=== PATIENT | male | born 1950 | race African-American/Black ===

== ENCOUNTER 2017-03-15 07:46 | Emergency (ER) | payer OTHER ==
[~2017-03-15] VITALS: Ht 165.1 cm; Wt 65.8 kg
--- NOTE | ~2017-03-15 | EKG ---
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 : 1950 Requested By: Kristian Mcgowan Order Number: [id number] MD: Alpesh Garza Measurements Intervals Mcandrews Rate: 95 P: 34 UT: 145 QRS: -14 QRSD: 83 T: 7 QT: 343 QTc: 431 Interpretive Statements Sinus rhythm Atrial premature complex Nonspecific T wave abnormality No previous ECG available for comparison Electronically Signed On 03-15-2017 8:53:20 CDT by Alpesh Garza [email or web address] <ELECTRONICALLY SIGNED> By: Alpesh Garza MD, [facility] 03/15/17 0853 0750 0750 Alpesh Garza MD, FACC /EPI
[2017-03-15] MEDS ORDERED: NITROGLYCERIN0.4 MG SUBLING (07:55)
[2017-03-15] MEDS ORDERED: TYLENOL325 MG PO (07:55)
[2017-03-15] MEDS ORDERED: KLOR-CON 1010 MEQ PO (07:55)
[2017-03-15] MEDS ORDERED: HYDRALAZINE 2525 MG PO (07:55)
[2017-03-15] MEDS ORDERED: GABAPENTIN 100100 MG PO (07:56)
[2017-03-15] MEDS ORDERED: LEXAPRO 10 MG T10 M2 PO (07:56)
[2017-03-15] MEDS ORDERED: TUMS PO (07:56)
[2017-03-15] MEDS ORDERED: HYTRIN 5 M5 MG/1 CAP PO (07:56)
[2017-03-15] MEDS ORDERED: COREG25 MG PO (07:57)
[2017-03-15] MEDS ORDERED: ALLOPURINOL 10100 M1 PO (07:57)
[2017-03-15] MEDS ORDERED: PROTONIX40 M1 PO (07:57)
[2017-03-15] MEDS ORDERED: PRINIVIL20 MG PO (07:57)
[2017-03-15] MEDS ORDERED: ASPIR 8181 MG PO (07:58)
[2017-03-15] MEDS ORDERED: PENTOXIFYLLINE400 MG PO (07:58)
[2017-03-15 08:53] LABS: ABSOLUTE NEUTROPHILS 2.9 thou/uL (1.4-8.2); BASOPHILS 1.1 % (0.0-2.0); EOSINOPHILS 15.2 % (0.0-3.0); HEMATOCRIT 25.5 % (42.0-52.0); HEMOGLOBIN 8.4 gm/dL (14.0-18.0); LYMPHOCYTES 27.6 % (24.0-44.0); MCH 24.8 pg (26.0-34.0); MCHC 33.1 g/dL (28.0-37.0); MCV 75.1 fL (80.0-100.0); MONOCYTES 7.1 % (1.0-8.0); PLATELET COUNT 101 thou/uL (150-400); RDW 21.2 % (10.5-14.5); WBC 5.9 thou/uL (4.0-11.0)
[2017-03-15 08:57] LABS: CALCIUM 8.4 mg/dL (8.5-10.1); CREATININE 5.3 mg/dL (0.7-1.3)
[2017-03-15 08:59] LABS: POTASSIUM 6.4 mmol/L (3.5-5.1)
[2017-03-15 09:15] LABS: MANUAL DIFF NO
[2017-03-15 11:51] VITALS: BP 176/84
== END 2017-03-15 11:53 | disposition home or self-care (01) ==
LOC: ER 07:46
PROVIDERS: Emergency Medicine
DX: R06.00 Dyspnea, unspecified (principal); E87.5 Hyperkalemia; F10.99 Alcohol use, unspecified with unspecified alcohol-induced disorder; Z87.891 Personal history of nicotine dependence; Z79.82 Long term (current) use of aspirin

== ENCOUNTER 2017-04-30 14:34 | Inpatient (IN) | payer OTHER ==
[~2017-04-30] VITALS: Ht 165.1 cm; Wt 58.4 kg
--- NOTE | ~2017-04-30 | H ---
[facility] [place] [address] HISTORY AND PHYSICAL Name: SEBLE WATT Room #: 512-P [facility] IN M.R.#: [id number] Admission: 04/30/17 Attend Phys: Hussein Medina MD Discharge: Date of : 54 Report #: [id number] THIS REPORT FOR: //name// CC: Hussein Medina [facility] unknown DATE OF SERVICE: 05/01/2017 ATTENDING PHYSICIAN: Dr. Hussein Medina. CONSULTING PHYSICIAN: Dr. Alie Guzman. CHIEF COMPLAINT: Weakness and renal failure. HISTORY OF PRESENT ILLNESS: The patient is a 66-year-old gentleman with known history of kidney transplant and renal failure. The patient is currently on hemodialysis and was having increased weakness. The patient has been admitted to inpatient rehabilitation unit. He does complain of having some nausea and some lightheadedness. He denied having any chest pain. PAST MEDICAL HISTORY: 1. Significant for history of kidney transplant. 2. End-stage renal disease, on hemodialysis. 3. Diabetes mellitus. 4. Hypertension. 5. Anemia. PAST SURGICAL HISTORY: Kidney transplant. ALLERGIES: He is not known to be allergic to any medication. MEDICATIONS: Medications used currently was hydralazine and nitroglycerin p.r.n., Tylenol p.r.n., calcium carbonate, Lexapro, gabapentin, terazosin, allopurinol, Coreg, lisinopril, pantoprazole, pentoxifylline and aspirin. SOCIAL HISTORY: Past history of cigarettes and uses of alcohol. REVIEW OF SYSTEMS: He did complain of dizziness and nausea. Denied any chest pain or breathing difficulty. No abdominal pain or any urinary symptoms. The patient was currently on dialysis. PHYSICAL EXAMINATION: GENERAL: Elderly gentleman who was sitting in a wheelchair. He did not appear to be in any acute distress. He was awake, alert, oriented to place and person. VITAL SIGNS: He was afebrile, pulse was 90 per minute and regular, respiratory rate of 16, blood pressure was 166/100. [address] [address] HISTORY AND PHYSICAL Name: SEBLE WATT Room #: 512-P [facility] IN M.R.#: [id number] Admission: 04/30/17 Attend Phys: Hussein Medina MD Discharge: Date of : 54 Report #: [id number] HEENT: Skull was atraumatic. There was mild pallor, no icterus. Mucosa was moist. NECK: Supple. LUNGS: Clear to auscultation bilaterally with no wheezing or crackles. HEART: First and second normal. There was no pericardial rub heard. ABDOMEN: Soft, nontender, bowel sounds normally heard. EXTREMITIES: Did not reveal any edema and the patient had AV fistula. ASSESSMENT: 1. End-stage renal disease, on hemodialysis. 2. Nausea. 3. Diabetes mellitus. 4. Hypertension. PLAN: To continue the patient on his current medications and start him on Zofran 4 mg q. 6 p.r.n. for nausea. Continue with his hemodialysis and we will follow along with. I would like to thank Dr. Medina for letting me part of the team taking care of the patient. <ELECTRONICALLY SIGNED> By: Alie Guzman MD 05/13/17 1412 0854 1004 Alie Guzman MD /nt
--- NOTE | ~2017-04-30 | HC ---
[facility] [place] [address] CONSULTATION Name: SEBLE WATT Room #: 512-P [facility] IN M.R.#: [id number] Admission: 04/30/17 Attend Phys: Hussein Medina MD Discharge: 05/14/17 Date of : 54 Report #: [id number] THIS REPORT FOR: //name// CC: Hussein Medina [facility] unknown DATE OF SERVICE: 05/02/2017 NEUROBEHAVIORAL STATUS EXAM ATTENDING PHYSICIAN: Hussein Medina MD THERAPY ASSISTANT: Deep Barraza, PhD CLINICAL PRESENTATION: The patient is a 66-year-old -[place] male admitted to the Rehab Unit at [facility] to assist with activities of daily living and self-care and mental status secondary to medical complexity and general debility. The patient is an end-stage renal disease with a prior failure kidney transplant. The patient is reported to have been confused and disoriented to the extent of discontinuing dialysis and not taking medicine properly. He was then [facility] [place] [facility] with volume overload and hyperkalemia. His condition began to resolve, but further treatment was necessary and subsequent hospitalization was indicated. He was transferred [place] the [place] [facility] and from [facility] to the rehabilitation program at [facility]. His diagnoses include medical complexity with generalized debilitation, recent Staphylococcus epidermis bacteremia, end-stage renal disease, diabetes mellitus, diabetic peripheral neuropathy, gastrointestinal bleeding, hepatitis C, and hypertension. A complete description of his medical condition, history and medications can be found in his medical record. Neuropsychological consultation was requested to provide assistance in the assessment of cognitive and emotional status and to provide recommendations and services. Prior to this most recent medical event, he was living independently with his in their home. The patient had a deterioration in functioning approximately 6 weeks' duration. Concern about dementia was expressed by his . He discontinued driving about 4 months ago. The patient is a high school graduate. He is a . 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 This is his second marriage. He has 4 children. TECHNIQUES UTILIZED: Clinical interview, review of medical records, staff consultation and behavioral observation, mini mental status exam 2 standard version, and clock drawing and interview with his . EXAMINATION FINDINGS: The patient was very drowsy and difficult to arouse. [facility] [address] [place] [address] CONSULTATION Name: SEBLE WATT Room #: 512-P [facility] IN M.R.#: [id number] Admission: 04/30/17 Attend Phys: Hussein Medina MD Discharge: 05/14/17 Date of : 54 Report #: [id number] Once responsive his orientation to place was poor. He indicated that he was in [place]. The patient was stationed in [place] many years ago. He was unable to recall the reason for his hospitalization or most recent residence. The patient stated that he was living alone. However, he was living with his . His family is supportive and has been taking care of providing an additional assistance in maintaining his care even though he has been increasingly noncompliant. His recently had a double mastectomy for breast cancer last week. She is concerned about her ability to care for him unless he had obtained to greater level of orientation and independence. Previous treatment for depression was reported. The patient is an unreliable historian of concerns and symptoms. He does not report difficulty with sleep or energy level. Appetite is described as inconsistent. However, the patient is unreliable in regard to his self disclosure. His performance on the MMSE 2 brief version was extremely low with a raw score of 10 of 16. He was 3/3 for initial registration, 1/5 for orientation to time and 3/[address]. He was 2/3 for immediate recall of 3 items after a brief time delay and distraction. The total raw score on the MMSE 2 brief version was 9 of 16. His performance on the MMSE 2 standard version was extremely low with a raw score 16 of 30. He was 0/5 for serial 7's, 2/2 for naming, 1/1 for repetition. He was 3/3 for auditory comprehension. He could read and follow single command. The patient was unable to copy a simple geometric design. He could not write a sentence. The patient was unable to place the numbers into a clock. He was very drowsy and required frequent encouragement to maintain orientation. At this time, his performance suggests intermittent delirium. An underlying neurocognitive disorder is likely. Impairment is noted with attention/concentration, immediate memory, executive functioning and visual spatial organization. DIAGNOSTIC IMPRESSION: Delirium, hypoactive, acute. Major neurocognitive disorder (dementia), likely due to medical etiology with vascular features, with decreased insight -- extent to be determined, RECOMMENDATIONS: The patient will require assistance in the management of medication, finances and nutrition. Encouragement to maintain alertness in order to engage in compensatory strategies for deficits in cognitive functioning. The use of a memory and orientation book would be helpful when [facility] [address] [place] [address] CONSULTATION Name: SEBLE WATT JR Room #: 512-P [facility] IN M.R.#: [id number] Admission: 04/30/17 Attend Phys: Hussein Medina MD Discharge: 05/14/17 Date of : 54 Report #: [id number] his level of environmental engagement is higher. Continued reorientation to place, time, and purpose of treatment will also be helpful. A followup neuropsychological evaluation to clarify severity of neurocognitive status and type of dementia is also indicated. Thank you very much for allowing me to provide the consultation on this patient. <ELECTRONICALLY SIGNED> By: Deep Barraza, PhD 05/15/17 1243 [id number] Deep Barraza, PhD /nt
--- NOTE | ~2017-04-30 | PLAN ---
[facility] [place] [address] REHAB UNIT PLAN OF CARE Name: SEBLE WATT JR Room #: 512-P AD[facility] IN M.R.#: [id number] Admission: 04/30/17 Attend Phys: Hussein Medina MD Discharge: Date of : 54 Report #: [id number] THIS REPORT FOR: //name// CC: Hussein MARTINES unknown DATE OF SERVICE: 05/03/2017 HISTORY: The patient is seen back today in followup. He is in no distress. Last recorded temperature is 37.4, pulse 80, respirations 16, blood pressure 151/85. No focal calf swelling. He has been voiding per the urinal. Continues on dialysis. Transfers are mod assist. Gait has been 20 feet mod assist with a front-wheeled walker. In occupational therapy, he is max assist for lower body dressing. ASSESSMENT: 1. Medical complexity with generalized debilitation. 2. Recent Staphylococcus epidermidis bacteremia. 3. End-stage renal disease with failed kidney transplant. 4. Diabetes mellitus. 5. Diabetic peripheral neuropathy. 6. Gastrointestinal bleeding. 7. Hepatitis C. 8. Hypertension. PLAN: The overall plan of care is based on the preadmission screen, post-admission physician evaluation and information garnered from therapy assessments. 1. Estimated length of stay is probably 2 weeks pending progress. 2. Medical prognosis is reasonably good. 3. Anticipated interventions includes the interdisciplinary acute inpatient rehabilitation program with PT, OT, rehab nursing assisting regarding medication management, skin care prophylaxis, bowel and bladder issues, and nursing education. The rehab consultants will be involved. Goals to maximize the patient's functional independence, so he can hopefully return back to his home setting. 4. Discharge destination would be back home where he lives with his family. 5. Expected therapy by discipline includes PT, OT 1 and 1-1/2 hours per day each five days a week throughout the duration of the acute inpatient rehabilitation stay. By: [id number] Hussein Medina MD /PMT
--- NOTE | ~2017-04-30 | H ---
[facility] [place] [address] HISTORY AND PHYSICAL Name: SEBLE WATT Room #: 512-P [facility] IN .R.#: [id number] Admission: 04/30/17 Attend Phys: Hussein Medina MD Discharge: 05/14/17 Date of : 54 Report #: [id number] THIS REPORT FOR: //name// CC: Hussein Medina [facility] unknown DATE OF SERVICE: 04/30/2017 HISTORY OF PRESENT ILLNESS: The patient is a 66-year-old -Wallisian male with a history of end-stage renal disease with prior failed kidney transplant, who was originally admitted to the [facility] with volume overload and hyperkalemia thought to be related to noncompliance. He was noted to have multiple comorbid conditions including hypertension, atrial fibrillation, diabetes mellitus and hepatitis C. He had blood cultures positive for Staphylococcus epidermidis. Infectious Disease was involved and it was noted of one of the four blood cultures was positive. Echocardiogram was negative. He is to continue with the 14-day course of vancomycin. He initially appeared to be encephalopathic with decreased cognition and there is a question of potentially some baseline dementia. The patient was transferred to [facility] for further medical management and care. He was involved in therapies and made gradual progress. He continued on the dialysis. Infectious Disease is involved regarding the IV vancomycin. He has shown gradual progress as far as basic functional mobility and now was felt to be ready to be admitted to the acute inpatient rehabilitation cho for intensive interdisciplinary rehabilitation therapies. PAST MEDICAL HISTORY: As noted above. End-stage renal disease, diabetes mellitus, hypertension, hepatitis C. He has had prior history of gastrointestinal bleeding. He has had prior kidney transplant with failure. MEDICATIONS: Each of the medications was individually reconciled upon admission and includes many vitamins, herbals, supplementation, etc. ALLERGIES: None known. FAMILY HISTORY: Noncontributory. HABITS: Nonsmoker, minimal alcohol intake. SOCIAL HISTORY: Lives with his in an apartment with two grandchildren, 1 and 2 years old. No steps. Premorbidly utilized a walker. Apparently, he has had transplant x 2 with subsequent failure and is on dialysis. There is a son and daughter in [place] and 2 daughters on the [facility]. His is retired. REVIEW OF SYSTEMS: He did not offer any current complaints of chest pain, [address] [address] HISTORY AND PHYSICAL Name: ALYSASEBLE Charisse Room #: 512-P [facility] IN [facility].#: [id number] Admission: 04/30/17 Attend Phys: Hussein Medina MD Discharge: 05/14/17 Date of : 54 Report #: [id number] shortness of breath, abdominal discomfort. He has numbness of his distal lower extremities consistent with his peripheral neuropathy. Complains of general overall weakness. Did not offer any complaints of any bowel or bladder changes. PHYSICAL EXAMINATION: GENERAL: He is a pleasant 66-year-old -Wallisian male in no obvious distress. VITAL SIGNS: Last recorded temperature 37.6, pulse 83, respirations 18, blood pressure 146/77. NEUROLOGIC: He is alert, appears appropriate. There is some cognitive slowing with his cognitive processing. He is able to follow basic commands without difficulty. Facies are symmetric. He is of slender build. CHEST: Sounded clear to auscultation. CARDIOVASCULAR: Sounded regular rate and rhythm. ABDOMEN: Bowel sounds positive, nontender. GENITOURINARY AND RECTAL: Deferred. EXTREMITIES: He has had bilateral shoulder rotator cuff surgeries. He has decreased abduction especially of the left shoulder to about 60 degrees, the right is closer to 90 degrees abduction. Strength of elbow, wrist and hand is more of a grade 4-. In his lower extremities, he has had a prior left knee incision from a prior left total knee replacement. There is no focal calf swelling. He has decreased sensation of his distal lower extremity consistent with his peripheral neuropathy. Strength is probably grade 3+/5. DTRs are decreased. Functionally, he has been needing assistance as far as basic transfers and his evaluation is underway with therapy. ASSESSMENT: A 66-year-old -Wallisian male with the following problem list: 1. Medical complexity with generalized debilitation. 2. Recent Staphylococcus epidermidis bacteremia. 3. End-stage renal disease with failed kidney transplant. Continues on dialysis. 4. Diabetes mellitus. 5. Diabetic peripheral neuropathy. 6. Gastrointestinal bleeding. 7. Hepatitis C. 8. Hypertension. PLAN: The patient is admitted for acute in-hospital inpatient rehabilitation. From a post admission physician evaluation perspective, there are no relevant changes since the preadmission screening. Please see the above review of prior and current medical and functional conditions and comorbidities. Please see the patient's previous and current functional status. As far as risk of complications, he has multiple medical comorbidities as noted above. Initial plan of care involves the interdisciplinary acute inpatient rehabilitation team with the goal of maximizing the patient's functional independence, so that he [facility] [address] [place] [address] HISTORY AND PHYSICAL Name: SEBLE WATT JR Room #: 512-P [facility] IN M.R.#: [id number] Admission: 04/30/17 Attend Phys: Hussein Medina MD Discharge: 05/14/17 Date of : 54 Report #: [id number] can hopefully return back to his prior living situation. Measurable functional goals would be for him to hopefully be up and able to ambulate with the walker again and do his basic ADLs, so that he can return back to his home setting. Prognosis is reasonably good. Estimated length of stay is probably at least 2 weeks. Potential barriers would include his multiple medical comorbidities and decreased functional status. By: 0821 1029 Hussein Medina MD /THEO
--- NOTE | ~2017-04-30 | HC ---
[facility] [place] [address] CONSULTATION Name: SEBLE WATT Room #: 512-P [facility] IN .R.#: [id number] Admission: 04/30/17 Attend Phys: Hussein Medina MD Discharge: Date of : 54 Report #: [id number] THIS REPORT FOR: //name// CC: Hussein MARTINES unknown DATE OF SERVICE: 05/01/2017 ATTENDING PHYSICIAN: Dr. Medina. REASON FOR CONSULTATION: End-stage renal disease. HISTORY OF PRESENT ILLNESS: The patient is well known to our service, has had end-stage renal disease for roughly 30 years. He had been on peritoneal dialysis, had two renal transplants most recently one of which failed 1-2 years ago and back on hemodialysis intermittently. Most recently he had urinary tract infection, questionable Staph ____ [facility] and now here for acute rehabilitation. PAST MEDICAL HISTORY: Longstanding difficult hypertension; longstanding diabetes, currently not treated with insulin. He has had multiple orthopedic surgeries including bilateral rotator cuff surgeries and two total left knee replacements. CURRENT MEDICATIONS: Include allopurinol 100 mg daily, calcium carbonate, carvedilol 25 mg b.i.d., citalopram 10 mg daily, Procrit, doxazosin 2 mg daily, Neurontin 300 mg at bedtime, lisinopril 20 mg daily, Protonix 40 mg daily, IV iron and Nephro-Jose. FAMILY HISTORY: Positive for diabetes. SOCIAL HISTORY: Remote smoking history. He has had some difficulty with alcoholism even recently. REVIEW OF SYSTEMS: GENERAL: He is overall fairly weak. EYES: Vision okay except he gets double vision. ENT: Hearing okay, swallows okay. No mouth ulcers. ENDOCRINE: Positive for the diabetes. RESPIRATORY: Denies current shortness of breath, hemoptysis, or pleuritic pain. CARDIAC: He has had no cardiac history. There have been no palpitations, heart failure, angina or other interventions. GASTROINTESTINAL: Appetite fair. GENITOURINARY: Continues to make some urine, not a lot. No dysuria or hematuria. NEUROLOGIC: He has got quite a bit of neuropathy symptoms in his legs. He has [facility] [address] [place] [address] CONSULTATION Name: SEBLE WATT Charisse Room #: 512-P [facility] IN M.R.#: [id number] Admission: 04/30/17 Attend Phys: Hussein Medina MD Discharge: Date of : 54 Report #: [id number] been weak. He has been unable to walk for sometime. MUSCULOSKELETAL: No active arthritis. PSYCHIATRIC: Again have the problem with alcoholism. PHYSICAL EXAMINATION: VITAL SIGNS: The patient is looking older than his stated age, weak and debilitated. SKIN: Unremarkable. SKELETAL: Nonobese. HEENT: Extraocular movements are full. Vision grossly intact. Hearing grossly intact. Mucous membranes moist. Tongue, buccal mucosa benign. NECK: Supple, no carotid bruits, no JVD, no lymphadenopathy. CHEST: Clear to auscultation. HEART: Regular. ABDOMEN: Soft and nontender. EXTREMITIES: Show no edema. NEUROLOGIC: Shows particularly weakness in the legs. LABORATORY DATA: Hemoglobin 8.5, potassium 3.9, creatinine 3.6. ASSESSMENT AND PLAN: 1. End-stage renal disease, most recently failed second renal transplant, on dialysis, relatively stable. Left arm fistula functioning well. 2. Hypertension, can at times be difficult on multiple medications, will be evaluated. 3. History of diabetes mellitus, off treatment for some time. Sugars okay. 4. Generalized debility with inability to walk, here for rehabilitation. 5. Status post multiple orthopedic surgeries including rotator cuff and left total knee. 6. History of alcohol abuse. 7. Failed renal transplant x 2 now off immunosuppressives. 8. Anemia on IV iron and Procrit. 9. Metabolic bone disease. We will check his phosphorus and decide on a binder. <ELECTRONICALLY SIGNED> By: Primitivo Betancourt MD 05/04/17 1144 1026 0035 Primitivo Betancourt MD /nt
[~2017-04-30 14:34] MED LIST: ALLOPURINOL 10100 M1 PO; ASPIR 8181 MG PO; COREG25 MG PO; GABAPENTIN 100100 MG PO; HYDRALAZINE 2525 MG PO; HYTRIN 5 M5 MG/1 CAP PO; KLOR-CON 1010 MEQ PO; LEXAPRO 10 MG T10 M2 PO; NITROGLYCERIN0.4 MG SUBLING; PENTOXIFYLLINE400 MG PO; PRINIVIL20 MG PO; PROTONIX40 M1 PO; TUMS PO; TYLENOL325 MG PO
[2017-04-30 18:00] VITALS: BP 165/98
[2017-04-30 19:50] VITALS: BP 156/105
[2017-05-01 05:59] LABS: HEMATOCRIT 25.7 % (42.0-52.0); HEMOGLOBIN 8.5 gm/dL (14.0-18.0); MCH 26.3 pg (26.0-34.0); MCHC 33.3 g/dL (28.0-37.0); MCV 79.2 fL (80.0-100.0); RBC 3.24 mil/uL (4.50-6.00); RDW 18.4 % (10.5-14.5); WBC 4.5 thou/uL (4.0-11.0)
[2017-05-01 06:16] LABS: CALCIUM 8.2 mg/dL (8.5-10.1); CREATININE 3.6 mg/dL (0.7-1.3); POTASSIUM 3.9 mmol/L (3.5-5.1)
[2017-05-01 19:41] VITALS: BP 127/66
[2017-05-02 06:29] LABS: CALCIUM 8.3 mg/dL (8.5-10.1); PHOSPHORUS 3.1 mg/dL (2.5-4.9); POTASSIUM 4.6 mmol/L (3.5-5.1)
[2017-05-02 06:30] LABS: CREATININE 5.2 mg/dL (0.7-1.3)
[2017-05-02 07:49] VITALS: BP 134/65
[2017-05-02 19:37] VITALS: BP 151/62
[2017-05-03 08:25] VITALS: BP 151/85
[2017-05-03 16:00] VITALS: BP 133/77
[2017-05-03 19:41] VITALS: BP 148/80
[2017-05-04 10:00] VITALS: BP 146/71
[2017-05-04 20:15] VITALS: BP 147/92
[2017-05-05 09:05] VITALS: BP 142/51
[2017-05-05 20:40] VITALS: BP 139/69
[2017-05-06 09:44] VITALS: BP 123/66
[2017-05-06 17:44] VITALS: BP 132/63
[2017-05-06 20:00] VITALS: BP 140/72
[2017-05-07 20:00] VITALS: BP 129/60
[2017-05-07 21:50] VITALS: BP 129/60
[2017-05-08 08:24] VITALS: BP 139/71
[2017-05-08 20:41] VITALS: BP 118/59
[2017-05-09 08:00] VITALS: BP 131/68
[2017-05-09 19:28] VITALS: BP 148/88
[2017-05-10 08:00] VITALS: BP 134/60
[2017-05-10 19:44] VITALS: BP 144/74
[2017-05-11 08:00] VITALS: BP 150/89
[2017-05-11 20:33] VITALS: BP 151/84
[2017-05-12 07:27] VITALS: BP 141/81
[2017-05-12 20:10] VITALS: BP 135/89
[2017-05-13 20:02] VITALS: BP 131/72
[2017-05-14 05:50] LABS: ALBUMIN 2.1 g/dL (3.4-5.0); CREATININE 3.4 mg/dL (0.7-1.3); PHOSPHORUS 2.2 mg/dL (2.5-4.9); POTASSIUM 4.7 mmol/L (3.5-5.1)
[2017-05-14 08:21] VITALS: BP 147/80
[2017-05-14] MEDS ORDERED: CARDURA4 MG PO (08:58)
[2017-05-14] MEDS ORDERED: TRAMADOL 50 MG50 MG PO (08:59)
[2017-05-14] MEDS ORDERED: NEURONTIN 300300 M1 PO (08:59)
[2017-05-14] MEDS ORDERED: MIRALAX17 GM PO (09:00)
[2017-05-14] MEDS ORDERED: NEPHROCAPS SOFT1 CAP PO (09:00)
[2017-05-14] MEDS ORDERED: COLACE 100 MG100 MG PO (09:00)
[2017-05-14 16:46] VITALS: BP 147/80
== END 2017-05-14 15:35 | DRG 947 ==
PROVIDERS: Hospitalist; Internal Medicine Nephrology; Physical Medicine & Rehabilitation
PROC: 5A1D60Z (ICD-10-PCS; principal; 2017-05-11)
DX: R53.81 Other malaise (principal); E43 Unspecified severe protein-calorie malnutrition; I12.0 Hypertensive chronic kidney disease with stage 5 chronic kidney disease or end stage renal disease; K92.2 Gastrointestinal hemorrhage, unspecified; Z94.0 Kidney transplant status; Z68.1 Body mass index [BMI] 19.9 or less, adult; E11.22 Type 2 diabetes mellitus with diabetic chronic kidney disease; F10.21 Alcohol dependence, in remission; R41.0 Disorientation, unspecified; F01.50 Vascular dementia, unspecified severity, without behavioral disturbance, psychotic disturbance, mood disturbance, and anxiety; E11.42 Type 2 diabetes mellitus with diabetic polyneuropathy; B19.20 Unspecified viral hepatitis C without hepatic coma; K21.9 Gastro-esophageal reflux disease without esophagitis; M10.9 Gout, unspecified; G72.9 Myopathy, unspecified; I25.10 Atherosclerotic heart disease of native coronary artery without angina pectoris; D64.9 Anemia, unspecified; Z96.652 Presence of left artificial knee joint; Z83.3 Family history of diabetes mellitus; Z87.891 Personal history of nicotine dependence; Z99.2 Dependence on renal dialysis
CPT/HCPCS: 10112; 32100

== ENCOUNTER 2017-07-27 21:52 | Emergency (ER) | payer OTHER ==
[~2017-07-27] VITALS: Ht 165.1 cm; Wt 61.2 kg
[~2017-07-27 21:52] MED LIST changes: +CARDURA4 MG PO; +COLACE 100 MG100 MG PO; +MIRALAX17 GM PO; +NEPHROCAPS SOFT1 CAP PO; +NEURONTIN 300300 M1 PO; +TRAMADOL 50 MG50 MG PO
[2017-07-27] MEDS ORDERED: NORCO 5-325 TA1 EACH PO (22:01)
[2017-07-27] MEDS ORDERED: ZANTAC 150MG T150 MG PO (22:02)
[2017-07-27 23:23] LABS: HEMATOCRIT 38.9 % (42.0-52.0); HEMOGLOBIN 12.3 gm/dL (14.0-18.0); MCH 24.6 pg (26.0-34.0); MCHC 31.6 g/dL (28.0-37.0); MCV 77.9 fL (80.0-100.0); RBC 4.99 mil/uL (4.50-6.00); RDW 18.9 % (10.5-14.5); WBC 4.7 thou/uL (4.0-11.0)
[2017-07-27 23:30] LABS: CALCIUM 8.2 mg/dL (8.5-10.1); CREATININE 8.2 mg/dL (0.7-1.3); MAGNESIUM 1.9 mg/dL (1.8-2.4); POTASSIUM 4.7 mmol/L (3.5-5.1)
== END 2017-07-27 23:57 | disposition home or self-care (01) ==
LOC: ER 21:52
PROVIDERS: Emergency Medicine
DX: R51 Headache (principal); R53.1 Weakness; E11.22 Type 2 diabetes mellitus with diabetic chronic kidney disease; N18.6 End stage renal disease; K21.9 Gastro-esophageal reflux disease without esophagitis; M19.90 Unspecified osteoarthritis, unspecified site; Z87.891 Personal history of nicotine dependence; W18.39XA Other fall on same level, initial encounter; Y93.89 Activity, other specified; Y92.89 Other specified places as the place of occurrence of the external cause; Y99.8 Other external cause status

== ENCOUNTER 2017-08-11 17:23 | Inpatient (IN) | payer OTHER ==
[~2017-08-11] VITALS: Ht 165.1 cm; Wt 61.5 kg
--- NOTE | ~2017-08-11 | HC ---
[facility] [place] [address] CONSULTATION Name: SEBLE WATT Room #: 353-P [facility] M.R.#: [id number] Admission: 08/12/17 Attend Phys: Robin Oropeza DO Discharge: Date of : 54 Report #: [id number] THIS REPORT FOR: //name// CC: FAM unknown Robin Oropeza DATE OF SERVICE: 08/12/2017 ATTENDING PHYSICIAN: Dr. Carballo. REASON FOR CONSULTATION: End-stage renal disease, missing dialysis. HISTORY OF PRESENT ILLNESS: The patient is well known to our service with end-stage renal disease for roughly 30 years, on and off dialysis, had 2 renal transplants, most recently failed a couple of years ago. He has been back on hemodialysis. He has been very debilitated, has had several bouts of attempted rehabilitation, living at home with his , unable to walk, gets around with wheelchair, had been very depressed. Now, he has had diarrhea for the last couple of weeks. He has missed at least the last 5 dialysis treatments, was brought to the Emergency Room, potassium was 6.2. PAST MEDICAL HISTORY: Longstanding difficult hypertension, longstanding diabetes, multiple orthopedic surgeries, 2 left knee replacements, multiple bilateral rotator cuff surgeries and chronic debilitation. HOME MEDICATIONS: Include allopurinol 100 mg daily, Tums with meals for binder, carvedilol 25 mg b.i.d., citalopram 10 mg daily, Procrit, doxazosin 2 mg daily, Neurontin 300 mg at bedtime, Nephro-Jose, lisinopril 20 mg daily, Protonix 40 mg daily. FAMILY HISTORY: Positive for diabetes. SOCIAL HISTORY: Remote smoking, some difficulty with alcoholism, I believe not very recently. REVIEW OF SYSTEMS: GENERAL: He has been weak and feeling poorly. EYES: Vision reasonably good. ENT: Hearing okay. No mouth sores or ulcers. ENDOCRINE: Positive diabetes. RESPIRATORY: Not short of breath, but mostly at rest. CARDIAC: No history of angina, palpitations. GASTROINTESTINAL: Appetite has been poor. He has had diarrhea, no bloody stool. GENITOURINARY: Making very little urine. NEUROLOGIC: He has got neuropathy in his legs with numbness and weakness. [facility] [address] [place] [address] CONSULTATION Name: SEBLE WATT Room #: 353-P [facility] ..#: [id number] Admission: 08/12/17 Attend Phys: Robin Oropeza DO Discharge: Date of : 54 Report #: [id number] MUSCULOSKELETAL: No active arthritis. PSYCHIATRIC: He has been somewhat depressed. PHYSICAL EXAMINATION: GENERAL: Chronically ill-appearing gentleman. SKIN: Unremarkable. SKELETAL: Thin, cachectic appearing. HEENT: Extraocular movements are full. Vision grossly intact. No scleral icterus. Hearing intact. Mucous membranes are moist. NECK: Supple. CHEST: Shows diminished breath sounds. HEART: Regular with distant. ABDOMEN: Soft and nontender. EXTREMITIES: Show no edema. LABORATORY DATA: Hemoglobin 12, white count 4.9. Sodium is 137, potassium 6.2, chloride 101, bicarbonate 18, creatinine 16.2, BUN 143. ASSESSMENT: 1. End-stage renal disease. He is quite uremic. He has not dialyzed in a couple of weeks. History is poor. He is sluggish and weak, having fair amount of diarrhea apparently at least according to his history. He will get dialysis with a low potassium bath. We will attempt to at least get him straightened out, dialyze him again tomorrow to try to catch up a little on his dialysis. 2. Diarrhea. That will need to be evaluated. 3. Longstanding diabetes mellitus. 4. History of hypertension. 5. Chronic and severe debility. <ELECTRONICALLY SIGNED> By: Primitivo Betancourt MD 08/13/17 1044 0901 1417 Primitivo Betancourt MD /nt
--- NOTE | ~2017-08-11 | EKG ---
[address] [address] ELECTROCARDIOGRAM REPORT Name: SEBLE WATT Room #: 353-P [facility] M.R.#: [id number] Admission: 08/11/17 Attend Phys: Giovanna Carballo Discharge: Date of : 54 Report #: [id number] THIS REPORT FOR: //name// [facility] ED Test Date: 2017-08-11 Test Time: 18:33:40 Pat Name: SEBLE WATT Department: Room: [facility] Gender: M State Manager: : 1950 Requested By: Nelson De Order Number: [id number] MD: Loco Kendall Measurements Intervals [place] Rate: 65 P: 15 [place]: 148 QRS: -17 QRSD: 88 T: 61 QT: 426 QTc: 443 Interpretive Statements Sinus rhythm Atrial premature complexes Borderline left axis deviation Borderline T abnormalities, lateral leads Compared to ECG 03/15/2017 07:50:24 No significant changes Electronically Signed On 08-11-2017 21:39:49 RAISIN WASHER by Loco Kendall [email or web address] <ELECTRONICALLY SIGNED> By: Loco Kendall MD 08/11/17 2139 32 32 Loco Kendall MD /BYRON
[~2017-08-11 17:23] MED LIST changes: +NORCO 5-325 TA1 EACH PO; +ZANTAC 150MG T150 MG PO
[2017-08-11 17:25] VITALS: BP 185/99
[2017-08-11 18:17] LABS: HEMOGLOBIN 12.1 gm/dL (14.0-18.0); MCH 24.9 pg (26.0-34.0); MCHC 32.7 g/dL (28.0-37.0); MCV 75.9 fL (80.0-100.0); RBC 4.87 mil/uL (4.50-6.00); RDW 19.4 % (10.5-14.5); WBC 4.9 thou/uL (4.0-11.0)
[2017-08-11 18:18] LABS: CALCIUM 8.4 mg/dL (8.5-10.1); CREATININE 15.9 mg/dL (0.7-1.3); MANUAL DIFF YES; PLATELET COUNT 96 thou/uL (150-400)
[2017-08-11 18:27] LABS: POTASSIUM 6.2 mmol/L (3.5-5.1)
[2017-08-11 18:37] LABS: ABSOLUTE NEUTROPHILS 2.5 thou/uL (1.4-8.2); TOTAL CELL COUNT 100
[2017-08-11 18:38] LABS: ANISOCYTOSIS 1+
[2017-08-11 22:22] VITALS: BP 184/100
[2017-08-11 22:47] VITALS: BP 170/97
[2017-08-12 04:00] VITALS: BP 185/74
[2017-08-12 04:31] LABS: CREATININE 16.2 mg/dL (0.7-1.3); POTASSIUM 5.9 mmol/L (3.5-5.1)
[2017-08-12 04:35] LABS: CALCIUM 8.2 mg/dL (8.5-10.1)
[2017-08-12 08:21] VITALS: BP 197/66
[2017-08-12 15:13] VITALS: BP 216/107
[2017-08-12 16:43] VITALS: BP 205/107
[2017-08-12 20:00] VITALS: BP 176/75
[2017-08-13 04:00] VITALS: BP 187/77
[2017-08-13 06:28] LABS: HEMOGLOBIN 11.3 gm/dL (14.0-18.0); MCH 24.6 pg (26.0-34.0); MCHC 32.3 g/dL (28.0-37.0); MCV 76.2 fL (80.0-100.0); RDW 18.6 % (10.5-14.5); WBC 3.7 thou/uL (4.0-11.0)
[2017-08-13 06:37] LABS: MANUAL DIFF YES
[2017-08-13 06:39] LABS: ALBUMIN 2.2 g/dL (3.4-5.0); CALCIUM 7.8 mg/dL (8.5-10.1); PHOSPHORUS 6.2 mg/dL (2.5-4.9)
[2017-08-13 06:42] LABS: CREATININE 8.1 mg/dL (0.7-1.3)
[2017-08-13 08:36] LABS: ABSOLUTE NEUTROPHILS 2.2 thou/uL (1.4-8.2); ANISOCYTOSIS 2+; OVALOCYTES 1+; POLYCHROMASIA OCCASIONAL; TOTAL CELL COUNT 100
[2017-08-13 08:37] LABS: HYPOCHROMASIA 1+; PLATELET COUNT 67 thou/uL (150-400)
[2017-08-13 11:40] VITALS: BP 189/71
[2017-08-13 17:04] VITALS: BP 148/72
[2017-08-13 19:55] VITALS: BP 147/94
[2017-08-14 04:50] VITALS: BP 140/77
[2017-08-14 06:05] LABS: BASOPHILS 0.8 % (0.0-2.0); EOSINOPHILS 6.1 % (0.0-3.0); HEMATOCRIT 37.9 % (42.0-52.0); HEMOGLOBIN 12.1 gm/dL (14.0-18.0); LYMPHOCYTES 34.2 % (24.0-44.0); MCH 24.4 pg (26.0-34.0); MCHC 31.9 g/dL (28.0-37.0); MCV 76.6 fL (80.0-100.0); MONOCYTES 8.2 % (1.0-8.0); POLYS 50.7 % (36.0-66.0); RBC 4.95 mil/uL (4.50-6.00)
[2017-08-14 06:15] LABS: MANUAL DIFF NO
[2017-08-14 06:19] LABS: CALCIUM 7.7 mg/dL (8.5-10.1); POTASSIUM 4.4 mmol/L (3.5-5.1)
[2017-08-14 06:24] LABS: CREATININE 4.6 mg/dL (0.7-1.3)
[2017-08-14 07:22] LABS: HYPOCHROMASIA 2+; LARGE PLATELETS FEW; PLATELET COUNT 66 thou/uL (150-400); PLATELET ESTIMATE DECREASED; TARGET CELLS 2+
[2017-08-14 07:39] VITALS: BP 171/78
[2017-08-14 12:00] VITALS: BP 155/81
[2017-08-14 15:42] VITALS: BP 186/63
[2017-08-14 18:59] VITALS: BP 187/73
[2017-08-14 19:00] VITALS: BP 187/73
[2017-08-15] VITALS (7 sets, daily range): BP systolic 139–207; BP diastolic 34–97
[2017-08-15 03:21] LABS: ABSOLUTE NEUTROPHILS 1.9 thou/uL (1.4-8.2); BASOPHILS 1.1 % (0.0-2.0); EOSINOPHILS 6.4 % (0.0-3.0); HEMATOCRIT 35.9 % (42.0-52.0); HEMOGLOBIN 11.6 gm/dL (14.0-18.0); MCH 24.6 pg (26.0-34.0); MCHC 32.4 g/dL (28.0-37.0); MCV 75.9 fL (80.0-100.0); MONOCYTES 11.7 % (1.0-8.0); PLATELET COUNT 65 thou/uL (150-400); POLYS 45.8 % (36.0-66.0); RBC 4.73 mil/uL (4.50-6.00); RDW 18.7 % (10.5-14.5); WBC 4.1 thou/uL (4.0-11.0)
[2017-08-15 03:26] LABS: MANUAL DIFF NO
[2017-08-15 03:41] LABS: CALCIUM 7.4 mg/dL (8.5-10.1)
[2017-08-15 03:42] LABS: CREATININE 3.6 mg/dL (0.7-1.3)
[2017-08-15 03:48] LABS: ANISOCYTOSIS 2+; OVALOCYTES 1+; PLATELET ESTIMATE DECREASED; POIKILOCYTOSIS 1+; POLYCHROMASIA 1+; TARGET CELLS 1+
[2017-08-15 03:49] LABS: HYPOCHROMASIA SLIGHT
[2017-08-16] VITALS (7 sets, daily range): BP systolic 146–178; BP diastolic 46–91
[2017-08-16] MEDS ORDERED: CARVEDILOL25 MG PO (09:13)
[2017-08-16] MEDS ORDERED: MIRTAZAPINE7.5 MG PO (09:13)
[2017-08-17 03:10] VITALS: BP 177/90
[2017-08-17 12:00] VITALS: BP 160/62
== END 2017-08-17 15:12 | DRG 682 ==
LOC: ER 17:23 → EROBS 20:37 → 3W 20:37
PROVIDERS: Emergency Medicine; Family Medicine; Nurse Practitioner Acute Care
PROC: 5A1D70Z Performance of Urinary Filtration, Intermittent, Less than 6 Hours Per Day (ICD-10-PCS; principal; 2017-08-12)
PROC: 5A1D70Z Performance of Urinary Filtration, Intermittent, Less than 6 Hours Per Day (ICD-10-PCS; 2017-08-14)
PROC: 5A1D70Z Performance of Urinary Filtration, Intermittent, Less than 6 Hours Per Day (ICD-10-PCS; 2017-08-17)
DX: I12.0 Hypertensive chronic kidney disease with stage 5 chronic kidney disease or end stage renal disease (principal); N18.6 End stage renal disease; E43 Unspecified severe protein-calorie malnutrition; E87.5 Hyperkalemia; E11.22 Type 2 diabetes mellitus with diabetic chronic kidney disease; M10.9 Gout, unspecified; K21.9 Gastro-esophageal reflux disease without esophagitis; F32.9 Major depressive disorder, single episode, unspecified; E11.42 Type 2 diabetes mellitus with diabetic polyneuropathy; Z96.652 Presence of left artificial knee joint; R53.81 Other malaise; E83.39 Other disorders of phosphorus metabolism; M19.90 Unspecified osteoarthritis, unspecified site; Z79.899 Other long term (current) drug therapy; Z79.82 Long term (current) use of aspirin; Z87.891 Personal history of nicotine dependence; Z91.15 Patient's noncompliance with renal dialysis; Z83.3 Family history of diabetes mellitus; Z91.14 Patient's other noncompliance with medication regimen
CPT/HCPCS: 10879; 32100